=== PATIENT | male | born 1965 | race Caucasian/White ===

== ENCOUNTER 2020-07-29 11:02 | Outpatient (REF) | payer MEDICAID, SELFPAY | END 2020-07-29 11:03 | disposition home or self-care (01) | LOC: HO.LAB 11:02 | PROVIDERS: PCP Internal Medicine Geriatric Medicine; Visit Provider Internal Medicine | DX: Z20.822 Contact with and (suspected) exposure to COVID-19 (principal) | CPT/HCPCS: 36415; C9803; U0003 ==

== ENCOUNTER 2021-10-11 16:02 | Outpatient (REF) | payer MEDICAID, SELFPAY ==
--- NOTE | ~2021-10-11 | US_ITS ---
EXAMINATION: US SCROTUM CLINICAL INFORMATION: Disorders of male genital organs. History of left orchiectomy 6 months ago. COMPARISON: None TECHNIQUE: A sonogram of the scrotum was performed assessing rodgers-scale appearance and color Doppler flow. Spectral Doppler analysis of the arterial and venous flow were performed in the testes bilaterally. FINDINGS: RIGHT: Right testicle measures 5.4 x 2.2 x 3.8 cm, volume 23.6 mL. No focal testicular parenchymal lesions are visualized. Spectral Doppler analysis of the arterial and venous flow is normal in the right testis. Right epididymal head is normal in size. There is a small 3 x 4 mm epididymal head cyst. No right hydrocele or varicocele is seen. Right epididymal Doppler flow is normal. There are 2 adjacent cysts or loculated fluid collections in the scrotum, measuring 1.6 x 1.6 x 1.5 cm and 0.5 x 1.1 x 0.6 cm. Larger cyst is slightly complex with some dependent internal echoes. LEFT: Left testicle is surgically absent. US/US scrotum IMPRESSION: Normal-appearing right testicle. Small right epididymal head cyst. 2 adjacent scrotal cysts or loculated fluid collections, largest measuring 1.6 cm.This could represent post surgical change.
== END 2021-10-11 16:03 | disposition home or self-care (01) ==
LOC: HO.US 16:02
PROVIDERS: PCP Internal Medicine Geriatric Medicine; Visit Provider Internal Medicine Geriatric Medicine
DX: N50.89 Other specified disorders of the male genital organs (principal)
CPT/HCPCS: 76870

== ENCOUNTER → 2022-01-28 11:04 | Outpatient (BNVA) | payer MEDICAID, SELFPAY | PROVIDERS: PCP Internal Medicine Geriatric Medicine; Visit Provider Urology | DX: N50.3 Cyst of epididymis (principal) | CPT/HCPCS: 99202 ==

== ENCOUNTER 2023-03-05 19:16 | Emergency (ER) | payer MEDICAID, SELFPAY ==
[2023-03-05 19:29] VITALS: BP 139/66; PULSE 63; RESP 16; TEMP 36.8; O2SAT 97; BMI 24.7
[2023-03-05 19:50] LABS: MANUAL DIFF FLAG NO
[2023-03-05 19:55] LABS: Basophils Percent Auto 0.3 % (0-2); Eosinophils Absolute Auto 0.1 X10*3/uL (0.0-0.4); Eosinophils Percent Auto 0.8 % (0-4); Hematocrit 41.7 % (42.0-52.0); Hemoglobin 14.2 g/dl (14.0-18.0); Imm Gran Abs Auto 0.01 X10*3/uL (0.00-0.03); Imm Gran Pct Auto 0.2 % (0.0-0.4); Lymphocytes Absolute Auto 2.4 X10*3/uL (1.2-4.9); Mean Corpuscular HGB Conc 34.1 g/dl (31.0-36.0); Mean Corpuscular Hemoglobin 28.5 pg (27.0-33.0); Mean Corpuscular Volume 83.7 fL (80.0-98.0); Mean Platelet Volume 10.5 fL (9.4-12.4); Monocytes Absolute Auto 0.7 X10*3/uL (0.1-1.2); Monocytes Percent Auto 10.7 % (2-11); Neutrophils Absolute Auto 3.2 x10*3/uL (2.0-8.3); Platelet Count 223 X10*3/uL (160-400); Red Blood Count 4.98 X10*6/uL (4.60-5.80); Red Cell Distribution Width 12.9 % (11.0-16.0); White Blood Count 6.4 X10*3/uL (4.8-10.8)
[2023-03-05 20:08] LABS: Alanine Aminotransferase 18 U/L (0-40); Albumin Level 4.4 g/dL (3.5-5.0); Alkaline Phosphatase 55 U/L (39-117); Anion Gap 12 (12-20); Aspartate Amino Transferase 18 U/L (5-37); Bilirubin Total 0.7 mg/dL (0.0-1.0); Blood Urea Nitrogen 21 mg/dL (9-16); Calcium 10.1 mg/dL (8.4-10.2); Carbon Dioxide 24 mmol/L (22-29); Chloride 108 mmol/L (96-108); Creatinine Clr Calc Pharmacy 85.5; Estimated Glomerular Filt Rate > 60; Glucose Random 116 mg/dL (60-115); Lipase 25 U/L (8-78); Potassium 3.7 mmol/L (3.3-5.1); Sodium 140 mmol/L (135-145); Total Protein 7.5 g/dL (6.5-8.0)
--- NOTE | 2023-03-05 21:35 | PC.NURSE ---
Pt in waiting room demanding doctors note. Pt advised that since he has not been physically seen by a physician or provider, we cannot distribute a note for work. Pt states 'we'll how long am i gonna be waiting here? Advised that wait times can fluctuate and pt states he is going to leave at this time. Out of department with steady gait, in no acute distress.
== END 2023-03-05 21:49 | disposition left against medical advice (07) ==
PROVIDERS: Student in an Organized Health Care Education/Training Program; Emergency Provider Emergency Medicine; PCP Internal Medicine Geriatric Medicine
DX: R10.9 Unspecified abdominal pain (principal); R11.2 Nausea with vomiting, unspecified; Z79.899 Other long term (current) drug therapy
CPT/HCPCS: 36415; 80053; 83690; 85025; 99282

== ENCOUNTER 2023-09-30 07:33 | Emergency (ER) | payer MEDICAID, SELFPAY ==
[2023-09-30 07:46] VITALS: BP 144/63; PULSE 70; RESP 16; TEMP 36.6; O2SAT 97; BMI 24.2
--- NOTE | 2023-09-30 07:51 | ED.ABDPAIN ---
HPI - Abdominal Pain General Chief Complaint: Abdominal Pain Stated Complaint: vomiting headache abd pain Time Seen by Provider: 09/30/23 07:38 Source: patient, family, RN notes reviewed and old records reviewed Mode of arrival: ambulatory Limitations: no limitations History of Present Illness HPI narrative: 57-year-old male with history of anemia presents to the ER for evaluation of 9/10 epigastric abdominal pain that started yesterday while he was doing yd work. He states the pain is also associated with a headache. He vomited twice this morning and has nausea. No diarrhea. No known sick contacts. He states the pain is located in his epigastric area and does not radiate. It is constant and burning in nature. He denies any urinary symptoms, back pain, fever, chills, SOB, or chest pain. MD elicited complaint: abdominal pain Pertinent past history: none Onset (ago): day(s) (1) Pain Consistency: constant Location: epigastric Severity: severe Pain scale (0-10): 9 Quality: stabbing Radiation: none Migration to: no migration Exacerbating factors: nothing Relieving factors: nothing Associated symptoms: nausea and vomiting Related Data Previous Rx's Medication Instructions Recorded ondansetron 4 mg disintegrating 4 mg PO Q8H PRN nausea and 09/30/23 tablet vomiting #7 tabs pantoprazole 40 mg tablet,delayed 40 mg PO DAILY #14 tabs 09/30/23 release (Protonix) Allergies Allergy/AdvReac Type Severity Reaction Status Date / Time No Known Allergies Allergy Verified 01/27/22 15:36 Review of Systems Review of Systems Yes all other systems are reviewed and are negative PMFSH Social History Social History Smoked in Last 30 Days: No Use of substances other than those prescribed or required for medical reasons: No Advance Directives: No Advance Directives Information Provided: No Physical Exam ED Vital Signs: Vital Signs - 24 hr 09/30/23 07:46 Temperature 97.9 F Pulse Rate 70 Respiratory Rate 16 Blood Pressure 144/63 H Pulse Oximetry 97 Oxygen Delivery Method Room Air BMI result Body Mass Index 24.2 Appearance: Alert. Oriented X3. No acute distress. Head: normocephalic, atraumatic. Eyes: Pupils equal, round and reactive to light. ENT: Pharynx normal. No tonsillar swelling or exudate. Neck: Normal inspection. Neck supple. CVS: Normal heart rate and rhythm. Pulses normal. Respiratory: No respiratory distress. Breath sounds normal. Abdomen: Soft and nontender. +BS x4 Skin: Skin warm and dry. Normal skin color. Normal skin turgor. No rashes. Extremities: No lower extremity edema. No joint swelling. Neuro/psych: Oriented X 3. No motor deficit. No sensory deficit. CN II-XII intact. Normal speech and cognition. Course Reevaluation(s) Reevaluation #1: patient's pain improved w/ morphine on reevaluation. some burning remains in the epigastric area. VS remain stable. awake and alert. GI cocktail ordered and tylenol for headache Medical Decision Making Medical Decision Making [facility] Narrative: 57 year old male with history of anemia presents the ER for evaluation of acute onset of severe epigastric pain, nonradiating and rated as a 9/10. On arrival to the ER patient appears very comfortable, no objective signs of pain. Abdominal exam is benign. IV fluids, pain medication antiemetics ordered. After IV morphine pain's abdominal pain was improved, some burning persisted and he was given GI cocktail with additional improvement. Lab workup showed normal lipase and LFTs. no DM hx, doubt atypical presentation of ACS. At this time patient is feeling much better. He is stable for discharge home with supportive care, likely dx gastritits. will give rx for PPI and PRN zofran. return precautions discussed. Differential Diagnosis Differential Diagnoses: The differential diagnosis associated with the presentation includes Gastritis, PUD, pancreatitis, GERD, SBO, cholecystitis, cholangitis, doubt cardiac etiology or ACS Admission/Observation Consideration of admission/observation: Escalation of care including admission/observation considered Lab Data [facility] Lab Attestation statement: I reviewed the patient's lab results. 09/30/23 07:57 09/30/23 07:57 Labs: Lab Results 09/30/23 Range/Units 07:57 WBC 7.4 (4.8-10.8) X10*3/uL RBC 5.21 (4.60-5.80) X10*6/uL Hgb 14.8 (14.0-18.0) g/dl Hct 42.6 (42.0-52.0) % MCV 81.8 (80.0-98.0) fL MCH 28.4 (27.0-33.0) pg MCHC 34.7 (31.0-36.0) g/dl RDW 12.7 (11.0-16.0) % Plt Count 222 (160-400) X10*3/uL MPV 10.3 (9.4-12.4) fL Immature Gran % (Auto) 0.3 (0.0-0.4) % Neut % (Auto) 77.1 H (45-73) % Lymph % (Auto) 15.1 L (20-40) % [place] % (Auto) 7.2 (2-11) % Eos % (Auto) 0.0 (0-4) % Baso % (Auto) 0.3 (0-2) % Lymph # (Auto) 1.1 L (1.2-4.9) X10*3/uL [place] # (Auto) 0.5 (0.1-1.2) X10*3/uL Eos # (Auto) 0.0 (0.0-0.4) X10*3/uL Baso # (Auto) 0.0 (0.0-0.2) X10*3/uL Abs Immat Gran (auto) 0.02 (0.00-0.03) X10*3/uL Absolute Neuts (auto) 5.7 (2.0-8.3) x10*3/uL Absolute Nucleated RBC 0.000 (0.0-0.012) X10*3/uL Nucleated RBC % (auto) 0.0 (0.0-0.2) /100WBC Sodium 134 L (135-145) mmol/L Potassium 3.9 (3.3-5.1) mmol/L Chloride 104 (96-108) mmol/L Carbon Dioxide 22 (22-29) mmol/L Anion Gap 12 (12-20) BUN 17 H (9-16) mg/dL Creatinine 0.74 (0.5-1.4) mg/dL Estim Creat Clear Calc 100.5 Estimated GFR > 60 Random Glucose 192 H (60-115) mg/dL Calcium 9.5 (8.4-10.2) mg/dL Magnesium 2.2 (1.6-2.6) mg/dL Total Bilirubin 1.3 H (0.0-1.0) mg/dL Direct Bilirubin 0.4 (0.0-0.5) mg/dL AST 20 (5-37) U/L ALT 24 (0-40) U/L Alkaline Phosphatase 66 (39-117) U/L Total Protein 7.6 (6.5-8.0) g/dL Albumin 4.3 (3.5-5.0) g/dL Lipase 23 (8-78) U/L Independent Historian Clinical information obtained from an independent historian. History obtained from or confirmed by: Spouse External Record Review External record reviewed: Outpatient record and Prior outpatient labs Tests considered The following testing was considered but not selected: EKG considered but history and physical not consistent with cardiac etiology Prescription Management I considered prescription management with: Pain Medication Medications Administered Discontinued Medications Generic Name Dose Route Start Last Admin Trade Name Freq PRN Reason Stop Dose Admin Acetaminophen 975 mg 09/30/23 08:44 09/30/23 08:55 Acetaminophen 325 Mg Tablet PO 09/30/23 08:45 975 mg ONCE ONE Administration Al Hydroxide/Mg Hydroxide 30 ml 09/30/23 08:41 09/30/23 08:55 Magnesium Hydrox/Alum Hydrox 30 Ml Oral.Susp PO 09/30/23 08:42 30 ml ONCE ONE Administration Belladonna Alkaloids/Phenobarbital 10 ml 09/30/23 08:41 09/30/23 08:54 Phenobarb/Hyoscy/Atropine/Scop 10 Ml Elixir PO 09/30/23 08:42 10 ml ONCE ONE Administration Sodium Chloride 1,000 mls @ 999 mls/hr 09/30/23 08:00 09/30/23 08:53 Ns IV 09/30/23 09:00 Infused .Q1H1M FRANCIA Infusion Lidocaine HCl 15 ml 09/30/23 08:41 09/30/23 08:54 Lidocaine Hcl Viscous 2 % 15 Ml Solution MUCOUS MEM 09/30/23 08:42 15 ml ONCE ONE Administration Morphine Sulfate 4 mg 09/30/23 07:46 09/30/23 08:02 Morphine Sulfate 4 Mg/Ml Cartridge IVPUSH 09/30/23 07:47 4 mg ONCE ONE Administration Protocol Ondansetron HCl 4 mg 09/30/23 07:46 09/30/23 08:02 Ondansetron Hcl 4 Mg/2 Ml Vial IVPUSH 09/30/23 07:47 4 mg ONCE ONE Administration Critical Care Time Critical Care Time Critical Care Time: Yes Total Critical Care Time: 36 Attestation: I have personally provided critical care time exclusive of time spent on separately billable procedures. Time includes review of lab data, radiology results, re-evaluation of pain/VS/mental status, and monitoring for potential decompensation. Intervention performed as documented. Discharge Plan Discharge Clinical Impression: Gastritis Qualifiers: Gastritis type: unspecified gastritis Chronicity: acute Gastritis bleeding: without bleeding Qualified Code(s): K29.00 - Acute gastritis without bleeding Patient Disposition: Home, Self-Care Instructions: Gastritis (DC) Additional Instructions: Your lab workup today was unremarkable. Your pain is most likely due to gastritis which is and irritation and inflammation of your stomach lining. Start taking the prescribed medication as directed for this. Stick to a bland diet. Avoid foods high in acid, avoid alcohol and NSAID medications like Aleve, Motrin, Advil or ibuprofen. Follow up with your doctor as needed. Follow up with GI doctor if you symptoms persist despite dietary modifications and medication. If you develop new or worsening symptoms call 911 or come back to the ER for further evaluation. Prescriptions: New pantoprazole [Protonix] 40 mg tablet,delayed release (DR/EC) 40 mg PO DAILY Qty: 14 0RF ondansetron 4 mg tablet,disintegrating 4 mg PO Q8H PRN (Reason: nausea and vomiting) Qty: 7 0RF Referrals: Name,MD Riky [Primary Care Provider] - Print Language: Cook Islander
[2023-09-30 08:00] LABS: MANUAL DIFF FLAG NO
[2023-09-30] MEDS: 0.9 % Sodium Chloride 1,000 ML 999 ML IV (08:00)
[2023-09-30 08:02] LABS: Basophils Percent Auto 0.3 % (0-2); Hematocrit 42.6 % (42.0-52.0); Hemoglobin 14.8 g/dl (14.0-18.0); Imm Gran Abs Auto 0.02 X10*3/uL (0.00-0.03); Imm Gran Pct Auto 0.3 % (0.0-0.4); Lymphocytes Absolute Auto 1.1 X10*3/uL (1.2-4.9); Lymphocytes Percent Auto 15.1 % (20-40); Mean Corpuscular HGB Conc 34.7 g/dl (31.0-36.0); Mean Corpuscular Hemoglobin 28.4 pg (27.0-33.0); Mean Corpuscular Volume 81.8 fL (80.0-98.0); Mean Platelet Volume 10.3 fL (9.4-12.4); Monocytes Absolute Auto 0.5 X10*3/uL (0.1-1.2); Monocytes Percent Auto 7.2 % (2-11); Neutrophils Absolute Auto 5.7 x10*3/uL (2.0-8.3); Neutrophils Percent Auto 77.1 % (45-73); Platelet Count 222 X10*3/uL (160-400); Red Blood Count 5.21 X10*6/uL (4.60-5.80); Red Cell Distribution Width 12.7 % (11.0-16.0); White Blood Count 7.4 X10*3/uL (4.8-10.8)
[2023-09-30] MEDS: Morphine Sulfate 4 MG/ML CARTRIDGE IVPUSH (08:02)
[2023-09-30] MEDS: ondansetron HCL 4 MG/2 ML VIAL IVPUSH (08:02)
--- NOTE | 2023-09-30 08:10 | PC.NURSE ---
patient presented with abd and headache x1day after doing yard work. IV 20# placed in the left lower arm, NS running, patient medicated per AUG. patient respirations equal and unlabored, patient family at bedside
[2023-09-30 08:28] LABS: Alanine Aminotransferase 24 U/L (0-40); Albumin Level 4.3 g/dL (3.5-5.0); Alkaline Phosphatase 66 U/L (39-117); Anion Gap 12 (12-20); Aspartate Amino Transferase 20 U/L (5-37); Bilirubin Direct 0.4 mg/dL (0.0-0.5); Bilirubin Total 1.3 mg/dL (0.0-1.0); Blood Urea Nitrogen 17 mg/dL (9-16); Calcium 9.5 mg/dL (8.4-10.2); Carbon Dioxide 22 mmol/L (22-29); Chloride 104 mmol/L (96-108); Creatinine Clr Calc Pharmacy 100.5; Estimated Glomerular Filt Rate > 60; Glucose Random 192 mg/dL (60-115); Lipase 23 U/L (8-78); Magnesium 2.2 mg/dL (1.6-2.6); Potassium 3.9 mmol/L (3.3-5.1); Sodium 134 mmol/L (135-145); Total Protein 7.6 g/dL (6.5-8.0)
[2023-09-30] MEDS: Lidocaine HCl Viscous 2 % 15 ML SOLUTION MUCOUS MEM (08:54)
[2023-09-30] MEDS: PHENobarb/Hyoscy/Atropine/Scop 10 ML ELIXIR PO (08:54)
[2023-09-30] MEDS: Acetaminophen 325 MG TABLET 975 MG PO (08:55)
[2023-09-30] MEDS: Magnesium Hydrox/Alum Hydrox 30 ML ORAL.SUSP PO (08:55)
[2023-09-30 09:55] VITALS: BP 142/75; PULSE 58; RESP 20; TEMP 36.2; O2SAT 97
[2023-09-30 09:56] VITALS: BP 142/75; PULSE 58; RESP 20; TEMP 36.2; O2SAT 97
== END 2023-09-30 09:56 | disposition home or self-care (01) ==
PROVIDERS: Physician Assistant; Emergency Provider Student in an Organized Health Care Education/Training Program; PCP Internal Medicine Geriatric Medicine
DX: K29.00 Acute gastritis without bleeding (principal)
CPT/HCPCS: 36415; 80048; 80076; 83690; 83735; 85025; 96361; 96374; 96375; 99284; J2270; J2405